=== PATIENT | female | born 1945 | race Caucasian/White ===

== ENCOUNTER 2018-07-19 05:23 | Day surgery (SDC) | payer OTHER ==
[~2018-07-19] VITALS: Ht 160 cm; Wt 89.4 kg
--- NOTE | ~2018-07-19 | O ---
[facility] [place] [address] OPERATIVE REPORT Name: MILEY KAM Room #: DEP [facility]#: [id number] Admission: 07/19/18 Attend Phys: Noah Pelaez MD Discharge: 07/19/18 Date of : 45 Report #: [id number] THIS REPORT FOR: //name// CC: Tova Pelaez ____ ____ DATE OF SERVICE: 07/19/2018 SURGEON: Noah Pelaez MD CONTRACT PROJECT MANAGER: None. PREOPERATIVE DIAGNOSIS: Bilateral upper lid dermatochalasia with superior visual field defect. POSTOPERATIVE DIAGNOSIS: Bilateral upper lid dermatochalasia with superior visual field defect. OPERATION PERFORMED: Bilateral upper lid functional blepharoplasty. ANESTHESIA: Local with IV sedation. COMPLICATIONS: None. INDICATIONS FOR SURGERY: This patient has acquired upper lid dermatochalasia with superior visual field loss both eyes because of excessive upper lid tissues to include skin and fat. Visual field testing demonstrates dense superior visual defects. Retesting with the upper lid elevated shows an improvement in visual field loss of over 30% and in excess of 12 degrees. The current procedures are undertaken in order to improve the patient's visual function. Informed consent was obtained to include but not limited to the loss of vision, bleeding, infection, scarring, failure to improve the problem and need for further surgery. DESCRIPTION OF OPERATION: The patient was taken to the operating room, where 2% Xylocaine with epinephrine mixed with equal parts of 0.75% Marcaine with Wydase was administered transcutaneously to each upper lid. The patient was then prepped and draped in the usual sterile fashion and a skin-marking pen was then utilized to outline an upper lid crease that was symmetrical on each side. Graefe forceps were then used to quantitate the redundant upper lid skin and it was similarly outlined. The incisions were then made with Bill scissors and a skin-muscle flap removed from each side with high-temp cautery. Hemostasis was achieved with the monopolar cautery as it was throughout the case. The [address] [address] OPERATIVE REPORT Name: MILEY KAM Room #: DEP [facility] M.R.#: [id number] Admission: 07/19/18 Attend Phys: Noah Pelaez MD Discharge: 07/19/18 Date of : 45 Report #: [id number] orbital septum was then identified and the central and medial fat pads were inspected. The redundant soft tissue was then sculpted with the monopolar cautery. The upper lid crease was then reformed with tightening of the pretarsal orbicularis muscle. The upper lid crease was then further reformed with multiple interrupted 6-0 chromic sutures. The skin was then closed with a running 6-0 plain gut suture. The wound was then cleaned and dressed with ophthalmic antibiotic ointment and a nonstick dressing. The patient was transported to the recovery area, where cold compresses were applied, having tolerated the procedure well with no anesthetic or operative complications being noted. <ELECTRONICALLY SIGNED> By: Noah Pelaez MD 07/30/18 0626 [id number] [id number] Noah Pelaez MD /nt
[~2018-07-19 05:23] MED LIST: ALLER-EASE180 MG PO; ASPIR 8181 MG PO; CALCIUM 600 +1 EA14 PO; COQ-10100 MG PO; FLONASE 0.05%50 MCG NASAL; GLUCOPHAGE XR500 M1 PO; HYDROCHLOROTHIA25 M2 PO; LEVOTHYROXINE100 MCG PO; LISINOPRIL10 MG PO; LORATIDINE 10 M10 M1 PO; LOVASTAT40 PO; MAGOX 400400 MG PO; METFORMIN HCL500 MG PO; VENTOLIN HFA 1818 GM INH; VITAMIN C1000 MG PO; VITAMIN D32000 UNIT PO; WOMEN'S 50 PLU1 EACH PO
[2018-07-19 14:21] VITALS: BP 130/65
== END 2018-07-19 12:00 | disposition home or self-care (01) ==
LOC: OR 05:23 → TBA 05:24 → OR 08:23
DX: H02.834 Dermatochalasis of left upper eyelid (principal); H02.831 Dermatochalasis of right upper eyelid; H53.462 Homonymous bilateral field defects, left side; H53.461 Homonymous bilateral field defects, right side; I10 Essential (primary) hypertension; E78.5 Hyperlipidemia, unspecified; E11.9 Type 2 diabetes mellitus without complications; E03.9 Hypothyroidism, unspecified; Z98.41 Cataract extraction status, right eye; Z98.42 Cataract extraction status, left eye; Z90.710 Acquired absence of both cervix and uterus; Z98.890 Other specified postprocedural states; Z79.899 Other long term (current) drug therapy; Z88.2 Allergy status to sulfonamides; Z79.82 Long term (current) use of aspirin
CPT/HCPCS: 50010; 50101; 50386; 50398; 51636; 56531; 62110; 62850; 70005